=== PATIENT | female | born 1960 | race African-American/Black ===

== ENCOUNTER 2024-07-28 08:37 | Day surgery (SDC) | payer MEDICARE, MEDICAID ==
[2024-07-24 15:11] VITALS: BMI 19.8
[2024-07-28] MEDS ORDERED: Promethazine HCl 25 MG/ML VIAL ONE (11:34)
[2024-07-28] MEDS ORDERED: PROPOFOL 60 ML ONE (12:05)
[2024-07-28] MEDS ORDERED: Lidocaine 2% MPF 10 ML AMP (For Epidural Use) ONE (12:10)
== END 2024-07-28 14:20 | disposition home or self-care (01) ==
LOC: CSHSDC 08:37
PROVIDERS: ATTEND Surgery
PROC: 0DJD8ZZ Inspection of Lower Intestinal Tract, Via Natural or Artificial Opening Endoscopic (ICD-10-PCS; principal; 2024-07-28)
PROC: 0DB98ZX Excision of Duodenum, Via Natural or Artificial Opening Endoscopic, Diagnostic (ICD-10-PCS; 2024-07-28)
DX: D50.9 Iron deficiency anemia, unspecified (principal); K59.9 Functional intestinal disorder, unspecified; K29.70 Gastritis, unspecified, without bleeding; I10 Essential (primary) hypertension; E11.9 Type 2 diabetes mellitus without complications; K29.50 Unspecified chronic gastritis without bleeding; K44.9 Diaphragmatic hernia without obstruction or gangrene; G47.00 Insomnia, unspecified; F41.9 Anxiety disorder, unspecified; Z80.0 Family history of malignant neoplasm of digestive organs; Z90.49 Acquired absence of other specified parts of digestive tract; Z79.899 Other long term (current) drug therapy; Z79.82 Long term (current) use of aspirin; Z88.5 Allergy status to narcotic agent; Z91.041 Radiographic dye allergy status; Z88.6 Allergy status to analgesic agent; Z88.8 Allergy status to other drugs, medicaments and biological substances; Z79.51 Long term (current) use of inhaled steroids; Z85.038 Personal history of other malignant neoplasm of large intestine; F17.200 Nicotine dependence, unspecified, uncomplicated
CPT/HCPCS: 43239; 45378; J2550; J2704; 88305